=== PATIENT | male | born 1995 | race American Indian/Alaskan Native ===

== ENCOUNTER 2017-01-25 00:11 | Emergency (ER) | payer OTHER ==
[2017-01-25 00:34] VITALS: RESP 20; O2SAT 98
--- NOTE | 2017-01-25 02:33 | C.PDOC ---
History Of Present Illness 22 year old male brought in by his brother for psychiatric evaluation. The patient has been very anxious and restless for few days. As per EMS and family, the mother has cancer and is terminal. Patient was admitted 2 weeks ago at [facility] for depression and suicide attempt with cough syrup. The patient has been taking Lexapro since discharge, last dose yesterday. He has appointment tomorrow with psychiatrist. However today the patient was acting strange according to the brother. The patient reports feeling restless and having tightness in chest and headache, which resolved earlier. Denies any suicidal thoughts. Time Seen by Provider: 01/25/17 01:16 Chief Complaint (Nursing): Psychiatric Evaluation History Per: Patient, Family History/Exam Limitations: no limitations Onset/Duration Of Symptoms: Days Past Medical History Reviewed: Historical Data, Nursing Documentation, Vital Signs Vital Signs: Last Vital Signs Temp 98.3 F 01/25/17 00:26 Pulse 101 H 01/25/17 00:26 Resp 20 01/25/17 00:26 BP 176/106 H 01/25/17 00:26 Pulse Ox 98 01/25/17 02:40 - Medical History PMH: Asthma, Depression Surgical History: No Surg Hx Family History: States: Unknown Family Hx - Social History Hx Alcohol Use: Yes Hx Substance Use: No Review Of Systems Except As Marked, All Systems Reviewed And Found Negative. Psych: Positive for: Anxiety, Depression Physical Exam - Physical Exam Appears: Non-toxic, No Acute Distress Skin: Warm, Dry Head: Atraumatic, Normacephalic Eye(s): bilateral: Normal Inspection, EOMI Nose: Normal Oral Mucosa: Moist Neck: Normal ROM Chest: Symmetrical Extremity: Bilateral: Atraumatic, Normal Color And Temperature, Normal ROM Neurological/Psych: Oriented x3, Normal Speech, Other (depressed mood) Gait: Steady ED Course And Treatment O2 Sat by Pulse Oximetry: 98 Medical Decision Making Medical Decision Making: food production worker Ayunde at bedside to evaluate patient. Case was discussed with Dr Arthur. As per dairy worker, the patient is stable for discharge and has appointment with psychiatrist tomorrow. Recommends Rx for Lexapro. Disposition Counseled Patient/Family Regarding: Diagnosis, Need For Followup, Rx Given - Disposition Referrals: Brown Wong MD [Primary Care Provider] - Disposition: HOME/ ROUTINE Disposition Time: 02:39 Condition: STABLE Additional Instructions: Please follow up with your psychiatrist as scheduled at [place] and continue with lexapro medication If you need to speak to someone, please call Crisis Hotline [phone] Prescriptions: Escitalopram [Lexapro] 5 mg PO DAILY #1 tab Instructions: Depression (DC) Forms: [facility] (Welsh) - POA Present On Arrival: None - Clinical Impression Clinical Impression: Depressive disorder
[2017-01-25 03:00] VITALS: BP 151/97; PULSE 99; TEMP 98.2
== END 2017-01-25 03:00 | disposition home or self-care (01) ==
LOC: C.ER 00:11 → SUPCPDRO 00:11 → C.ER 03:00
DX: F32.9 Major depressive disorder, single episode, unspecified (principal)

== ENCOUNTER 2017-03-11 09:33 | Inpatient (IN) | payer MEDICAID, OTHER ==
[2017-03-11 10:20] LABS: BASO # 0.1 K/uL (0.0-0.2); BASO % 0.8 % (0.0-2.0); EOS % 0.4 % (0.0-4.0); HEMATOCRIT 46.7 % (35.0-51.0); LYMPH # 1.7 K/uL (1.0-4.3); LYMPH % 17.9 % (20.0-40.0); MEAN CELL VOLUME 88.1 fL (80.0-94.0); MEAN CORPUSCULAR HEMOGLOBIN 30.2 pg (27.0-31.0); MEAN CORPUSCULAR HGB CONC 34.3 g/dL (33.0-37.0); MEAN PLATELET VOLUME 7.9 fL (7.2-11.7); MONO # 0.8 K/uL (0.0-0.8); MONO % 8.2 % (0.0-10.0); NRBC % 0.1 % (0.0-2.0); RED CELL DISTRIBUTION WIDTH 13.1 % (11.5-14.5); WHITE BLOOD COUNT 9.7 K/uL (4.8-10.8)
[2017-03-11 10:39] LABS: RBC URINE < 1 /hpf (0-3); URINE BACTERIA RARE (<OCC); URINE BILIRUBIN NEGATIVE (NEGATIVE); URINE BLOOD NEGATIVE (NEGATIVE); URINE COLOR Yellow (YELLOW); URINE GLUCOSE (UA) NORMAL (Normal); URINE KETONE TRACE mg/dL (NEGATIVE); URINE LEUKOCYTE ESTERASE NEG Leu/uL (Negative); URINE PROTEIN NEGATIVE (NEGATIVE); URINE UROBILINOGEN NORMAL mg/dL (0.2-1.0); WBC URINE 2 /hpf (0-5)
[2017-03-11 10:41] LABS: ALCOHOL SERUM < 10 mg/dl (0-10); ALKALINE PHOSPHATASE 71 U/L (38-126); ALT/SGPT 41 U/L (21-72); AST/SGOT 56 U/L (17-59); BILIRUBIN,TOTAL 0.7 mg/dL (0.2-1.3); BLOOD UREA NITROGEN 13 mg/dL (9-20); CALCIUM 8.9 mg/dl (8.6-10.4); CARBON DIOXIDE 31 mmol/L (22-30); CHLORIDE 98 mmol/L (98-107); GFR AFRICAN-AMERICAN > 60; GLUCOSE,RANDOM 100 mg/dL (75-110); POTASSIUM 3.3 mmol/L (3.6-5.2); SODIUM 137 mmol/L (132-148); TOTAL PROTEIN 8.7 g/dL (6.3-8.3)
[2017-03-11 10:50] LABS: ALB/GLOB RATIO 1.1 (1.0-2.1)
--- NOTE | 2017-03-11 10:51 | C.PDOC ---
History Of Present Illness 22 y/o male brought to ED by EMS, found outside with active hallucinations. Patient states "God has chosen me. I am the chosen one." Notes God speaks to him. Further history from patient limited secondary to mental status. According to EMS, patient stated he fell from the 3rd story and was c/o knee pain. Patient with no knee pain in the ER. Time Seen by Provider: 03/11/17 09:41 Chief Complaint (Nursing): Psychiatric Evaluation History Per: Patient, EMS History/Exam Limitations: other (mental status) Onset/Duration Of Symptoms: Days Current Symptoms Are (Timing): Still Present Modifying Factor(s): None Recent travel outside of the [place]: No Past Medical History Reviewed: Historical Data, Nursing Documentation, Vital Signs Vital Signs: Last Vital Signs Temp 97.6 F 03/11/17 15:36 Pulse 88 03/11/17 15:36 Resp 16 03/11/17 15:36 BP 121/73 03/11/17 15:36 Pulse Ox 100 03/11/17 18:14 - Medical History PMH: Anxiety, Asthma, Depression, Post Traumatic Stress Disorder, Schizophrenia Family History: States: Unknown Family Hx - Social History Hx Alcohol Use: No Hx Substance Use: No - Immunization History Hx Tetanus Toxoid Vaccination: (unk) Hx Influenza Vaccination: No Hx Pneumococcal Vaccination: (unk) Review Of Systems Review Of Systems: ROS cannot be obtained secondary to pt's inabilty to answer questions. Physical Exam - Physical Exam Appears: No Acute Distress, Other (pressured speech, tangential, manic) Skin: Warm, Dry, No Rash Head: Atraumatic, Normacephalic Eye(s): bilateral: Normal Inspection, PERRL, EOMI Oral Mucosa: Moist Neck: Normal ROM, Supple Chest: Symmetrical Cardiovascular: Rhythm Regular, No Friction Rub, No Murmur Respiratory: Normal Breath Sounds, No Rales, No Rhonchi, No Wheezing Gastrointestinal/Abdominal: Normal Exam, Soft, No Tenderness Back: Normal Inspection Extremity: Normal ROM, Capillary Refill (< 2 sec.) Neurological/Psych: Normal Speech, Normal Motor Gait: Steady ED Course And Treatment - Laboratory Results Result Diagrams: 03/11/17 10:15 03/11/17 10:15 ECG: Interpreted By Me ECG Rhythm: Sinus Rhythm ECG Interpretation: Normal Rate From EC O2 Sat by Pulse Oximetry: 100 (RA) Pulse Ox Interpretation: Normal - Radiology CXR: Read By Radiologist CXR Interpretation: Yes: No Acute Disease Medical Decision Making Medical Decision Making: The patient was evaluated by the crisis team who states that the patient is involuntary and needs screening. Patient is requesting Xanax. Xanax given. The case was discussed with Dr. Arizmendi (psych oncall) who states she will write for Haldol PO for agitation. Patient to be screened by [facility] for involuntary placement. Disposition - Disposition Disposition: Trans to Other Acute Care Hosp Disposition Time: 18:10 Condition: STABLE Forms: [employer] (Botswanan) - POA Present On Arrival: None - Clinical Impression Clinical Impression: Acute psychosis - PA / BULK PLANT MANAGER / Resident Statement MD/DO has reviewed & agrees with the documentation as recorded. - Scribe Statement The provider has reviewed the documentation as recorded by the Scribe SM All medical record entries made by the Scribe were at my direction and personally dictated by me. I have reviewed the chart and agree that the record accurately reflects my personal performance of the history, physical exam, medical decision making, and the department course for this patient. I have also personally directed, reviewed, and agree with the discharge instructions and disposition. Physician Patient Turnover Patient Signed Over To: Aditya Jacinto Handoff Comments: PEnding [facility] screening and possible transfer
[2017-03-11] MEDS ORDERED: Potassium Chloride 20 mEq ER Tab PO STA (14:23)
[2017-03-11] MEDS ORDERED: Potassium Chloride 20 mEq ER Tab PO ONE (14:37)
--- NOTE | 2017-03-11 17:23 | RAD ---
HISTORY: AMS COMPARISON: No prior. TECHNIQUE: Chest PA and lateral FINDINGS: LUNGS: No active pulmonary disease. PLEURA: No significant pleural effusion identified. No pneumothorax apparent. CARDIOVASCULAR: Normal. OSSEOUS STRUCTURES: No significant abnormalities. VISUALIZED UPPER ABDOMEN: Normal. OTHER FINDINGS: None. IMPRESSION: No active disease.
--- NOTE | 2017-03-12 19:58 | PCM.BM ---
<Isaac Pham - Last Filed: 03/12/17 19:57> Treatment Plan Problems - Problems identified on initial assessmt Delusional Date Initiated: 03/12/17 Time Initiated: 17:15 Assessment reference: NA Status: Active Treatment assets and liabiliti Patient Assests: physically healthy, good support system Patient Liabilities: poor support system, relationship conflicts - Milieu Protocol Maintain good personal hygiene: daily Encourage regular showers, daily Remind patient to perform daily oral care Conduct patient checks and document Observation sheet: Q15 minutes Maintain personal safety: every shift Educate patient to report safety concerns to staff, every shift Monitor environment for contraband/sharps Medication safety: Monitor for expected outcome, potential side effects: every shift, Assess barriers to learning: every shift, Assess readiness for medication education: every shift <Sheree Alford - Last Filed: 03/16/17 11:21> Family Contact Family involvement: Family/SO is involved Family contact: Patient declines to allow family contact at present - Goals for Treatment Patient goals for treatment: "I want to go home." Discharge/Continuing Care - Education Needs Education Needs: Patient Medication, Patient Coping Skills - Discharge Discharge Criteria: Tolerates medication w/o severe side effects, Reduction of target symptoms Discharge to:: Home - Treatment Team Participation Discussed with Family/SO: No Was Patient/Family/SO present at Treatment Team Meeting: Yes <Reagan De La Rosa - Last Filed: 03/16/17 11:28> - Diagnosis (1) Schizoaffective disorder Status: Acute Interventions: 03/16/17 11:28 * Assess/adjust medications daily and /or as needed * See patient on an individual basis 7x/week to assess status of hallucinations * Discuss risks, benefits, side effects and alternatives of medications *
--- NOTE | 2017-03-13 18:25 | PCM.PSYCH ---
Initial Psychiatric Evaluation - Initial Psychiatric Evaluation Type of Admission: Voluntary Legal Status: Capacity Chief Complaint (in patient's own words): "I'm the Lord" History of Present Illness and Precipitating Events: Patient is a 22 year old AAM with psychiatric history of depression and psychosis was admitted for psychosis, and disorganize and bizarre behavior. Pt was seen and evaluated. Chart reviewed. Pt was initially screened for involuntary admission. However, after haldol his cognition was cleared and he signed the voluntary admission form. He still had disorganized and bizarre behavior. He is internally preoccupied and responding to stimuli as well as he is religiously preoccupied and stated that he is the "Lord". He reported high level of energy, elevated and expansive mood for more than 6 days, not sleeping for many days, sexually preocciped and wants to have more sex. However, he denied any inappropriate involvement in sexual risky behavior. He reproted distraction, difficulty in focus, FOI, had grandiose delusions. Patient denied any history of suicidal ideations, attempts , gestures, plan or intent at the time of re assessment. Patient denied any history of homicidal ideations, attempts, gestures, plan or intent at the time of re assessment. Patient denied any auditory, visual, gustatory, olfactory or tactile hallucinations at the time of interview. Patient presented with adequate insight. Patient admitted to coming into the hospital yelling and behaving inappropriately. Patient reported that he lost his healthcare insurance at age 22. Patient also noted being under his mother's healthcare plan prior to her becoming very ill and passing away. Patient reported that he had not taken medications (Lexapro and Zoloft) in 2 weeks. Patient reported meeting with Dr. Leal, psychiatrist located in [place], [place], in January. Current Medications: Active Medications Generic Name Dose Route Start Last Admin Trade Name Freq PRN Reason Stop Dose Admin Benztropine Mesylate 2 mg 03/12/17 18:00 03/12/17 18:43 Cogentin PO 2 mg Q6 PRN Administration Extra Pyramidal Symptoms Clonazepam 0.5 mg 03/13/17 13:30 03/13/17 17:26 Klonopin PO 0.5 mg BID PADMINI Administration Diphenhydramine HCl 50 mg 03/12/17 18:00 Benadryl PO Q6 PRN Extra Pyramidal Symptoms Divalproex Sodium 250 mg 03/12/17 18:00 03/13/17 17:26 Depakote Er PO 250 mg BID PADMINI Administration Haloperidol 5 mg 03/12/17 19:00 03/13/17 17:26 Haldol PO 5 mg BID PADMINI Administration Haloperidol Lactate 5 mg 03/12/17 18:15 Haldol IM Q8 PRN Moderate Agitation Hydroxyzine HCl 25 mg 03/12/17 17:54 Atarax PO Q6 PRN Anxiety Lorazepam 2 mg 03/12/17 17:54 Ativan PO Q8H PRN Severe Agitation Past Psychiatric History - Past Psychiatric History Previous Treatment History: Inpatient Prior Professional Help: meds management Prior Psychiatric Treatment: please see HPI At [facility]: [facility] History of Abuse: denied History of ETOH/Drug Use: denied History of Family Illness: anxiety Pertinent Medical Hx (Current Medical&Sleep Prob, Allergies): Allergies Allergy/AdvReac Type Severity Reaction Status Date / Time PORK Allergy Mild RASH Verified 01/25/17 00:25 Escitalopram [Lexapro] 20 mg PO BID 03/11/17 Sertraline [Zoloft] 50 mg PO DAILY 03/11/17 Review of Systems - Review of Systems All systems: reviewed and no additional remarkable complaints except (HPI) Mental Status Examination - Personal Presentation Personal Presentation: Looks stated age, Dressed appropriate to season - Affect Affect: Blunted - Motor Activity Motor Activity: Calm - Reliability in Providing Information Reliability in Providing Information: Fair - Speech Speech: Disorganized, Tangential - Mood Mood: Anxious, Euphoric - Formal Thought Process Formal Thought Process: Paranoia, Flight of ideas, Circumstantial - Hallucinations/Delusions Delusions: Granduer - Obsessions/Compulsions Obsessions: No Compulsions: No - Cognitive Functions Orientation: Person, Place, Situation, Time Sensorium: Alert Attention/Concentration: Attentive, Easily distracted Abstract Thinking: [place] Estimate of Intelligence: Average Judgement: Imparied, as evidence by: Lack of insight into illness, Intact, as evidence by: Good judgement Memory: Recent intact, as evidence by: Ability to recall events of the day - Risk Risk: Suicidal (denied) - Strength & Assets Inventory Strength & Assets Inventory: Intelligence, Family support, Education, Cooperative - Limitations Limitations: Other (loss of mother, job and breakup with GF) DSM 5 DX - DSM 5 DSM 5 Diagnosis: Bipolar disorder, mre manic, severe, with psychotic features, r/o Schizoaffective d/o - Recommended/Plan of Treatment Treatment Recommendations and Plan of Treatment: Start Risperdal 0.5 mg po BID, but pt declined and stated it makes him sleepy and does not want to start. Start Haldol 5 mg po BID for psychosis. Start Depakote 250 mg po BID for mood stabilization. Start Klonopin 0.5 mg po BID for anxiety. Psychoeducation provided regarding meds benefits, s/e, alternative choices discussed. He verbalized understanding and agree to start with current meds. Individual and group therapy. Therapy in milieu. Monitor vitals Projected ELOS: 7 days Prognosis: good with compliance with meds Discharge Plan and Discharge Criteria: SW plan
--- NOTE | 2017-03-14 10:13 | PCM.PYCHPN ---
Psychiatric Progress Note - Psychiatric Progress Note Patient seen today, length of contact: 16 min Patient Chief Complaint: I am marianna.' Problems Identified/Issues Discussed: Patient seen and evaluated, chart reviewed and discussed with the nurse. Patient remained disorganized and internally preoccupied. He remained isolated, confined and withdrawn and still appears paranoid and delusional. However, he still has poor insight about his illness and denies any AVH. He denies any depressed mood or any feelings of hopelessness and helplessness. He has started taking medication and denies any side effects. He need some time for stabilization. Supportive therapy and psychoeducation were given. Medication Change: No Medical Record Reviewed: Yes Mental Status Examination - Cognitive Function Orientation: Person, Place, Situation, Time Memory: Intact Attention: Poor Concentration: Poor Association: Loose Fund of Knowledge: Poor - Mood Mood: Anxious, Euphoric - Affect Affect: Broad - Speech Speech: Pressured - Formal Thought Process Formal Thought Process: Delusions, Paranoia, Loosening of associations, Flight of ideas, Circumstantial - Suicidal Ideation Suicidal Ideation: No - Homicidal Ideation Homicidal Ideation: No Goal/Treatment Plan - Goal/Treatment Plan Need for Continued Stay: Severe depression anxiety, Severe functional impairment Progress Toward Problem(s) and Goals/Treatment Plan: Bipolar disorder, mre manic, severe, with psychotic features, r/o Schizoaffective d/o Stop Risperdal 0.5 mg po BID, Haldol 5 mg po BID for psychosis. Depakote 250 mg po BID for mood stabilization. Klonopin 0.5 mg po BID for anxiety. Psychoeducation provided regarding meds benefits, s/e, alternative choices discussed. He verbalized understanding and agree to start with current meds. Individual and group therapy. Therapy in milieu. Monitor vitals - Smoking Cessation Smoking Cessation Initiated: No
--- NOTE | 2017-03-14 12:04 | CARD ---
APPROVED REPORT EKG Measurement Heart [id number] <Conclusion> Sinus rhythm with marked sinus arrhythmia Otherwise normal ECG
[2017-03-15 06:37] VITALS: O2SAT 66
[2017-03-15] MEDS ORDERED: Influenza Vaccine 60 mcg/0.5 mL SYR (4YR UP) IM ONE (10:10)
--- NOTE | 2017-03-15 14:22 | PCM.PYCHPN ---
Psychiatric Progress Note - Psychiatric Progress Note Patient seen today, length of contact: 16 min Patient Chief Complaint: "I feel good" Problems Identified/Issues Discussed: The patient was seen, chart reviewed, and case discussed with staff. The patient had no events overnight. He reports he slept well last night. He reports improvement in his mood. He reports some feelings of paranoia. He states he lives at home with his father and would like to return home after discharge. Patient remained disorganized and internally preoccupied. He remained isolated, confined and withdrawn and still appears paranoid and delusional. However, he still has poor insight about his illness and denies any AVH. He denies any suicidal ideations or homicidal ideations. He comes out of his room more often. He has signed a 48 hours notice. The patient is taking medications and denies any side effects. Symptoms are improving but needs more time to stabilize. After care discussed, support and psychoeducation given. Medication Change: Yes Medical Record Reviewed: Yes Mental Status Examination - Cognitive Function Orientation: Person, Place, Situation, Time Memory: Intact Attention: WNL Concentration: Poor Association: Loose Fund of Knowledge: Poor - Mood Mood: Anxious - Affect Affect: Broad - Speech Speech: Appropriate - Formal Thought Process Formal Thought Process: Paranoia, Loosening of associations - Suicidal Ideation Suicidal Ideation: No - Homicidal Ideation Homicidal Ideation: No Goal/Treatment Plan - Goal/Treatment Plan Need for Continued Stay: Remain at risks for inpatient hospitalization, Severe depression anxiety, Discharge may exacerbated symptoms Progress Toward Problem(s) and Goals/Treatment Plan: Bipolar disorder, mre manic, severe, with psychotic features, r/o Schizoaffective d/o Increase Haldol 10 mg po BID for psychosis. Increase Depakote 500 mg po BID for mood stabilization. Klonopin 0.5 mg po BID for anxiety. Psychoeducation provided regarding meds benefits, s/e, alternative choices discussed. He verbalized understanding and agree to start with current meds. Individual and group therapy. Therapy in milieu. Monitor vitals - Smoking Cessation Smoking Cessation Initiated: No
[2017-03-15] MEDS: Divalproex 500 mg ER Tab PO SCH (23:13)
[2017-03-16] MEDS: Divalproex 500 mg ER Tab PO SCH ×2 (10:02→21:43)
--- NOTE | 2017-03-16 11:19 | PCM.PYCHPN ---
Psychiatric Progress Note - Psychiatric Progress Note Patient seen today, length of contact: 16 min Patient Chief Complaint: "I feel good, just tired" Problems Identified/Issues Discussed: The patient was seen, chart reviewed, and case discussed with staff. Patient is social and responsive, but internally preoccupied. He is distracted, describes delusions, and is highly suspicious of others. He provided contact information for family members, but they are unreachable. Patient and staff report no events overnight. Patient states he is "in and out of sleep." He reports improvement in his mood. He denies any suicidal ideations or homicidal ideations. He denies any auditory hallucinations, visual hallucinations, or feelings of paranoia. Patient is compliant with medications and reports no side effects. Symptoms are improving but need more time to stabilize. After care discussed, support and psychoeducation given. Medication Change: Yes (d/c haldol, start prolixin) Medical Record Reviewed: Yes Mental Status Examination - Cognitive Function Orientation: Person, Place, Situation, Time Memory: Intact Attention: Poor Concentration: Poor Association: Loose Fund of Knowledge: Poor - Mood Mood: Anxious - Affect Affect: Broad - Speech Speech: Appropriate - Formal Thought Process Formal Thought Process: Paranoia, Loosening of associations - Suicidal Ideation Suicidal Ideation: No - Homicidal Ideation Homicidal Ideation: No Goal/Treatment Plan - Goal/Treatment Plan Need for Continued Stay: Remain at risks for inpatient hospitalization, Severe depression anxiety, Discharge may exacerbated symptoms Progress Toward Problem(s) and Goals/Treatment Plan: Bipolar disorder, mre manic, severe, with psychotic features, r/o Schizoaffective d/o d/c Haldol 10 mg po BID for psychosis. Start Prolixin 5 mg PO BID Depakote 500 mg po BID for mood stabilization. Klonopin 0.5 mg po BID for anxiety. Psychoeducation provided regarding meds benefits, s/e, alternative choices discussed. He verbalized understanding and agree to start with current meds. Individual and group therapy. Therapy in milieu. Monitor vitals Call [facility] screeners for involuntary commitment - Smoking Cessation Smoking Cessation Initiated: No
[2017-03-17 06:52] VITALS: BP 113/72; PULSE 68; RESP 20; TEMP 97.9
--- NOTE | 2017-03-17 09:09 | PCM.PYCHDC ---
Mental Status Examination - Mental Status Examination Orientation: Person, Place, Situation, Time Discharge Summary - Discharge Note Consultations:: List each consultation separately and include: 1. Reason for request. 2. Findings. 3. Follow-up Summary of Hospital Course include:: 1. Description of specific treatment plan utilized for patients during their course of treatmen. 2. Summarize the time- course for resolution of acute symptoms and/or regressed behaviors. 3. Describe issues identified and worked on during hospitalization. 4. Describe medication utilized. 5. Describe medical problems identified and treated. 6. Reassessment of suicide risk - Final Diagnosis (DSM 5) Condition upon Discharge: STABLE Disposition: HOME/ ROUTINE
[2017-03-17] MEDS: Divalproex 500 mg ER Tab PO SCH (10:56)
== END 2017-03-17 12:00 | disposition home or self-care (01) | DRG 885 ==
LOC: C.ER 09:33 → C.5E 03-12 16:38
PROVIDERS: ADMIT Psychiatry & Neurology Psychiatry; ATTEND Psychiatry & Neurology Psychiatry
DX: F31.2 Bipolar disorder, current episode manic severe with psychotic features (principal)

== ENCOUNTER 2018-04-11 18:36 | Emergency (ER) | payer SELFPAY ==
[2018-04-11 18:42] VITALS: BP 161/88; PULSE 102; RESP 18; TEMP 97.7; O2SAT 100
--- NOTE | 2018-04-11 19:38 | C.PDOC ---
History Of Present Illness 23 y/o M p/w back pain. States back pain is chronic. Denies any new symptoms. Also complains of cough which he was given antibiotic for from [place] last week and states voice getting better since then. He also reports an abscess on the L thigh that began draining on its own last night and now feels flat and causes no pain. Denies fever, dyspnea, vomiting. Time Seen by Provider: 04/11/18 19:10 Chief Complaint (Nursing): Cough, Cold, Congestion Past Medical History Vital Signs: Last Vital Signs Temp 97.7 F 04/11/18 18:38 Pulse 102 H 04/11/18 18:38 Resp 18 04/11/18 18:38 BP 161/88 H 04/11/18 18:38 Pulse Ox 100 04/11/18 18:38 - Medical History PMH: Anxiety, Asthma, Depression, Post Traumatic Stress Disorder, Schizophrenia Denies: Diabetes, Hepatitis, HIV, HTN, Seizures, Sexually Transmitted Disease Family History: States: Unknown Family Hx - Social History Hx Alcohol Use: Yes Hx Substance Use: No - Immunization History Hx Tetanus Toxoid Vaccination: (unk) Hx Influenza Vaccination: No Hx Pneumococcal Vaccination: (unk) Review Of Systems Except As Marked, All Systems Reviewed And Found Negative. Constitutional: Negative for: Fever Cardiovascular: Negative for: Chest Pain Physical Exam - Physical Exam Additional Physical Exam Comments: Gen: NAD head: NC Eyes: PERRL ENT: MMM NEck: Supple Chest: No deformity CV: Regular rate Lungs: CTA b/l Abd: Soft, NT back: No CVA tenderness Extrmeities: No edema, FROM Skin: L thigh with small area of erythema, no fluctuance and central opening, no active discharge Neuro: Alert ED Course And Treatment O2 Sat by Pulse Oximetry: 100 Disposition - Disposition Disposition: HOME/ ROUTINE Disposition Time: 19:37 Condition: STABLE Instructions: Upper Respiratory Infection (ED) Forms: [facility] ([place]ots[place]an), Work Excuse - Clinical Impression Clinical Impression: Cough
[2018-04-11] MEDS ORDERED: Oxycodone/Acetaminophen 5/325 mg Tab PO STA (19:50)
[2018-04-11] MEDS ORDERED: Oxycodone/Acetaminophen 5/325 mg Tab ONE (19:55)
== END 2018-04-11 20:03 | disposition home or self-care (01) ==
LOC: C.ER 18:36
DX: R05 Cough (principal)
CPT/HCPCS: 96372; 99284; J1885

== ENCOUNTER 2018-05-11 07:24 | Emergency (ER) | payer BC, MEDICAID ==
[2018-05-11 07:37] VITALS: O2SAT 98
--- NOTE | 2018-05-11 07:59 | C.PDOC ---
Time Seen by Provider: 05/11/18 07:34 Chief Complaint (Nursing): Back Pain Past Medical History Vital Signs: Last Vital Signs Temp 97.2 F L 05/11/18 07:33 Pulse 104 H 05/11/18 07:33 Resp 20 05/11/18 07:33 BP 142/90 05/11/18 07:33 Pulse Ox 98 05/11/18 07:33 - Medical History PMH: Anxiety, Arthritis, Asthma, Depression, HTN, Post Traumatic Stress Disorder, Schizophrenia Denies: Diabetes, Hepatitis, HIV, Chronic Kidney Disease, Seizures, Sexually Transmitted Disease Family History: States: Unknown Family Hx - Social History Hx Alcohol Use: No Hx Substance Use: No - Immunization History Hx Tetanus Toxoid Vaccination: No Hx Influenza Vaccination: No Hx Pneumococcal Vaccination: No ED Course And Treatment O2 Sat by Pulse Oximetry: 98 Disposition - Disposition
--- NOTE | 2018-05-11 08:04 | C.PDOC ---
History Of Present Illness 23 yo male w/Phx of chr. back pain, comes in for evaluation of diffuse back pain exacerbation developed since yesterday " after had MRI of my lower back ". Pt reports, MRi was ordered by chiropractor. Pt reports, " today all my back hurts after uncomfortable position during MRI". Pt denies known direct trauma or injury, fever, chills, abd. pain, V/D, UTI sx, saddle anesthesia, incontinence, denies weakness, sensory or vascular deficit to B/L LEs. Ambulatory, not in any apparent distress. Time Seen by Provider: 05/11/18 07:34 Chief Complaint (Nursing): Back Pain History Per: Patient Past Medical History Reviewed: Historical Data, Nursing Documentation, Vital Signs Vital Signs: Last Vital Signs Temp 97.2 F L 05/11/18 07:33 Pulse 104 H 05/11/18 07:33 Resp 20 05/11/18 07:33 BP 142/90 05/11/18 07:33 Pulse Ox 98 05/11/18 07:33 - Medical History PMH: Anxiety, Arthritis, Asthma, Depression, HTN, Post Traumatic Stress Disorder, Schizophrenia Denies: Diabetes, Hepatitis, HIV, Chronic Kidney Disease, Seizures, Sexually Transmitted Disease Family History: States: Unknown Family Hx - Social History Hx Alcohol Use: No Hx Substance Use: No - Immunization History Hx Tetanus Toxoid Vaccination: No Hx Influenza Vaccination: No Hx Pneumococcal Vaccination: No Review Of Systems Except As Marked, All Systems Reviewed And Found Negative. Constitutional: Negative for: Fever, Chills ENT: Negative for: Throat Pain Cardiovascular: Negative for: Chest Pain Gastrointestinal: Negative for: Nausea, Vomiting, Abdominal Pain, Diarrhea Genitourinary: Negative for: Dysuria, Frequency, Incontinence Musculoskeletal: Positive for: Back Pain Skin: Negative for: Bruising Neurological: Negative for: Weakness, Numbness Physical Exam - Physical Exam Appears: Well, Non-toxic, No Acute Distress Skin: Normal Color, Warm, Dry, No Ecchymosis Eye(s): bilateral: PERRL Neck: Supple Gastrointestinal/Abdominal: Soft, No Tenderness, No Distention, No Guarding, No Rebound Back: No CVA Tenderness, No Vertebral Tenderness, Paraspinal Tenderness (diffuse thorac and lumbar paraspinal tenderness. No edema, no skin changes, no palpable tenderness) Extremity: Normal ROM, No Tenderness, No Deformity, No Swelling DTR: Knee (R): 2+, Knee (L): 2+ Neurological/Psych: Oriented x3, Normal Speech, Normal Motor, Normal Sensation, Normal Reflexes ED Course And Treatment O2 Sat by Pulse Oximetry: 98 Pulse Ox Interpretation: Normal Progress Note: On re-eval, pt is afebrile, hemodynamicaly stable. Non-toxic. Ambulatory in Ed with stable gait. Abd: benign, (-) guarding, (-) rebound. back: (-) CVA tenderness. neurologicaly intact. Pt has clinical findings c/w chr. lower back pain, acute exacerbation. Pt was asking for Vicodin in ED. Pt advised and ref. to f/u with PM, PMD in 2-3 days for re-eval and pain control. Disposition Counseled Patient/Family Regarding: Diagnosis, Need For Followup, Rx Given - Disposition Referrals: [facility] [Provider Group] [facility] [Provider Group] Disposition: HOME/ ROUTINE Disposition Time: 08:08 Condition: STABLE Additional Instructions: Take medication as need for pain Follow up with PMD, pain management in 2-3 days for re-evaluation. return if any new changes. Prescriptions: Gabapentin [Neurontin] 300 mg PO Q12 #10 cap Methocarbamol [Robaxin] 500 mg PO TID #14 tab Instructions: Low Back Pain (DC) Forms: [facility] (E[place]ian), Work Excuse - Clinical Impression Clinical Impression: Low back strain, Thoracic back sprain
[2018-05-11 08:47] VITALS: BP 124/88; PULSE 96; RESP 17; TEMP 98.1
== END 2018-05-11 08:30 | disposition home or self-care (01) ==
LOC: C.ER 07:24
DX: S23.3XXA Sprain of ligaments of thoracic spine, initial encounter (principal); S39.012A Strain of muscle, fascia and tendon of lower back, initial encounter; X58.XXXA Exposure to other specified factors, initial encounter; I10 Essential (primary) hypertension; F20.9 Schizophrenia, unspecified; F43.10 Post-traumatic stress disorder, unspecified
CPT/HCPCS: 96372; 99283; J1885